=== PATIENT | male | born 1950 | race African-American/Black ===

== ENCOUNTER 2024-02-24 17:58 | Inpatient (IN) | payer MEDICAID, MEDICARE ==
[~2024-02-24] VITALS: Ht 177.8 cm; Wt 81.6 kg
[2024-02-24] MEDS ORDERED: LACO50TA2 PO (18:32)
[2024-02-24] MEDS ORDERED: ASPI81TA31 PO (18:32)
[2024-02-24] MEDS ORDERED: CRAN3875 PO (18:32)
[2024-02-24] MEDS ORDERED: APIX5TAB4 PO (18:32)
[2024-02-24] MEDS ORDERED: INSU100V39 (18:32)
[2024-02-24] MEDS ORDERED: SPIR25TA6 PO (18:32)
[2024-02-24] MEDS ORDERED: LACT1CAP61 PO (18:32)
[2024-02-24] MEDS ORDERED: BUME1TAB8 PO (18:32)
[2024-02-24] MEDS ORDERED: METO25TA6 PO (18:32)
[2024-02-24] MEDS ORDERED: ISOS30TA9 PO (18:32)
[2024-02-24] MEDS ORDERED: SACU1TAB PO (18:32)
[2024-02-24] MEDS ORDERED: METF-440 PO (18:32)
[2024-02-24] MEDS ORDERED: MAGN400O6 PO (18:32)
[2024-02-24] MEDS ORDERED: ATOR40TA PO (18:32)
[2024-02-24] MEDS ORDERED: INSULIN GLARGINE SQ (18:32)
[2024-02-24] MEDS ORDERED: EMPA10TA PO (18:32)
[2024-02-24] MEDS ORDERED: CRAN425C6 PO (18:32)
[2024-02-24] MEDS ORDERED: AMIO200T5 PO (18:32)
[2024-02-24] MEDS ORDERED: LEVE500T20 PO (18:32)
[2024-02-24 18:38] LABS: BASOPHILS % (AUTO) 0.1 % (0.0-2.0); EOSINOPHILS # (AUTO) 0.1 K/uL (0.0-0.7); EOSINOPHILS % (AUTO) 1.1 % (0.0-7.0); HEMATOCRIT 32.5 % (36.7-47.1); HEMOGLOBIN 10.8 g/dL (12.5-16.3); LYMPHOCYTES % (AUTO) 26.9 % (20.5-51.5); MEAN CORPUSCULAR HEMOGLOBIN 32.2 uug (23.8-33.4); MEAN CORPUSCULAR HGB CONC 33 g/dL (32.5-36.3); MEAN CORPUSCULAR VOLUME 97.2 fL (73.0-96.2); MONOCYTES # (AUTO) 1.5 K/uL (0.1-1.30); NEUTROPHILS # (AUTO) 6.7 K/uL (1.8-8.9); NEUTROPHILS % (AUTO) 58.9 % (38.5-71.5); PLATELET COUNT (AUTO) 267 K/uL (152-348); RED BLOOD CELL COUNT(AUTO) 3.34 MIL/uL (4.06-5.63); RED CELL DISTRIBUTION WIDTH 13.1 % (12.1-16.2); WHITE BLOOD COUNT (AUTO) 11.3 K/uL (3.6-10.2)
[2024-02-24 18:44] LABS: DIFFERENTIAL COMMENT 1
[2024-02-24 18:46] LABS: CALCIUM 9.1 mg/dL (8.5-10.1); CARBON DIOXIDE 24 mmol/L (21-32); CHLORIDE 99 mmol/L (98-107); CREATININE 3.8 mg/dL (0.6-1.3); GLUCOSE 136 mg/dL (74-106); POTASSIUM 4.3 mmol/L (3.5-5.1); SODIUM SERUM 136 mmol/L (136-145); UREA NITROGEN, BLOOD 64 mg/dL (7-18)
[2024-02-24] MEDS: IV NORMAL SALINE 1000 ML BAG IV ONE ×2 (18:46→20:00)
[2024-02-24 18:49] LABS: AMMONIA < 10 umol/L (11-32)
[2024-02-24 18:55] LABS: ALANINE AMINOTRANSFERASE 21 U/L (16-63); ALBUMIN 3.1 g/dL (3.4-5.0); ALKALINE PHOSPHATASE 81 U/L (50-136); ASPARTATE AMINOTRANSFERASE 8 U/L (15-37); BILIRUBIN,DIRECT 0.2 mg/dL (0.0-0.2); BILIRUBIN,TOTAL 0.5 mg/dL (0.2-1.0); ETHANOL < 3 MG/DL (0-10); TOTAL PROTEIN, SERUM 7.3 g/dL (6.4-8.2)
[2024-02-24 18:56] LABS: ACETAMINOPHEN < 2.0 ug/mL (10-30)
[2024-02-24] MEDS ORDERED: ONDANSETRON 4 MG/2 ML VIAL IV PRN (21:15)
[2024-02-24] MEDS ORDERED: ACETAMINOPHEN 325 MG TABLET PO PRN (21:15)
[2024-02-24] MEDS ORDERED: LIDOCAINE 2%-EPI 1:100,000 20 ML VIAL ONE (22:10)
[2024-02-24] MEDS: LIDOCAINE 2%-EPI 1:100,000 20 ML VIAL IJ ONE (22:15)
[2024-02-24 23:40] LABS: *BILIRUBIN,URIN NEGATIVE (NEGATIVE); *BLOOD, URINE 2+ (NEGATIVE); *CLARITY,URINE SLIGHTLY CLOUDY (CLEAR); *COLOR,URINE YELLOW (YELLOW); *KETONES,URINE NEGATIVE (NEGATIVE); *PROTEIN,URINE 1+ (NEGATIVE); *UROBILINOGEN,URINE 0.2 E.U./dl (NORMAL); LEUKOCYTE ESTERASE ,URINE 3+ (NEGATIVE); NITRITE, URINE POSITIVE (NEGATIVE); PH,URINE 5.5 (5.0-8.0); UGLUCOSE 2+ (NEGATIVE)
[2024-02-24 23:52] LABS: BACTERIA,URINE MODERATE /HPF (NONE SEEN); SQUAMOUS EPITHELIAL CELL,UR FEW /HPF (NONE SEEN); WBC,URINE TNTC /HPF (0-3)
[2024-02-24 23:53] LABS: *AMPHETAMINE, URINE NEGATIVE (NEGATIVE); *BARBITURATE, URINE NEGATIVE (NEGATIVE); *BENZODIAZEPINE, URINE NEGATIVE (NEGATIVE); *CANNABINOID, URINE NEGATIVE (NEGATIVE); *COCCAINE, URINE NEGATIVE (NEGATIVE); *OPIATE, URINE NEGATIVE (NEGATIVE); *PHENCYCLIDINE SCREEN,URINE NEGATIVE (NEGATIVE)
[2024-02-24 23:54] LABS: FENTANYL, URINE NEGATIVE (NEGATIVE)
[2024-02-24] MEDS: CEFTRIAXONE 1 G in IV DEXTROSE 5% 50 ML IV ONE (23:59)
[2024-02-24] MEDS ORDERED: CEFTRIAXONE /D5W 50ML IVPB **ER PYXIS IV ONE (23:59)
[2024-02-25] VITALS (62 sets, daily range): BP systolic 73–175; BP diastolic 49–164; TEMP 98–99; O2SAT 87–100
[2024-02-25] MEDS ORDERED: NOREPINEPHRINE BITARTRATE 4 MG/4 ML VIAL IV ONE
[2024-02-25] MEDS ORDERED: levETIRAcetam 500 MG/5 ML VIAL IV ONE (03:30)
[2024-02-25] MEDS: levETIRAcetam IV 500 MG in IV DEXTROSE 5% 100 ML IV ONE (03:35)
[2024-02-25] MEDS: OLANZAPINE 10 MG VIAL IM ONE (04:04)
[2024-02-25] MEDS: NOREPINEPHRINE BITARTRATE 32 MG in IV NORMAL SALINE 218 ML IV ONE (04:20)
[2024-02-25] MEDS: IV NS 1000 ML 1,000 ML IV PRN (05:05)
[2024-02-25 05:37] LABS: BASOPHILS # (AUTO) 0.1 K/UL (0.0-0.2); BASOPHILS % (AUTO) 0.9 % (0.0-2.0); EOSINOPHILS % (AUTO) 0.2 % (0.0-7.0); HEMATOCRIT 34.3 % (36.7-47.1); HEMOGLOBIN 11.2 g/dL (12.5-16.3); LYMPHOCYTES # (AUTO) 3.8 K/uL (0.8-4.8); LYMPHOCYTES % (AUTO) 29.1 % (20.5-51.5); MEAN CORPUSCULAR HEMOGLOBIN 31.6 uug (23.8-33.4); MEAN CORPUSCULAR HGB CONC 33 g/dL (32.5-36.3); MEAN CORPUSCULAR VOLUME 97.1 fL (73.0-96.2); MONOCYTES # (AUTO) 1.3 K/uL (0.1-1.30); MONOCYTES % (AUTO) 9.8 % (0.0-11.0); NEUTROPHILS # (AUTO) 7.9 K/uL (1.8-8.9); PLATELET COUNT (AUTO) 297 K/uL (152-348); RED BLOOD CELL COUNT(AUTO) 3.53 MIL/uL (4.06-5.63); RED CELL DISTRIBUTION WIDTH 13.7 % (12.1-16.2); WHITE BLOOD COUNT (AUTO) 13.1 K/uL (3.6-10.2)
[2024-02-25 05:50] LABS: DIFFERENTIAL COMMENT 1
[2024-02-25 06:12] LABS: IRON, SERUM 66 ug/dL (50-175)
[2024-02-25 06:18] LABS: ALANINE AMINOTRANSFERASE 29 U/L (16-63); ALBUMIN 3.2 g/dL (3.4-5.0); ALKALINE PHOSPHATASE 78 U/L (50-136); ASPARTATE AMINOTRANSFERASE 13 U/L (15-37); BILIRUBIN,TOTAL 0.4 mg/dL (0.2-1.0); CALCIUM 9.2 mg/dL (8.5-10.1); CARBON DIOXIDE 24 mmol/L (21-32); CHLORIDE 100 mmol/L (98-107); CHOLESTEROL 125 mg/dL (<200); CREATININE 2.8 mg/dL (0.6-1.3); GLUCOSE 163 mg/dL (74-106); HDL CHOLESTEROL 70 mg/dL (40-60); MAGNESIUM 1.9 mg/dL (1.8-2.4); PHOSPHOROUS 3.9 mg/dL (2.5-4.9); POTASSIUM 4.6 mmol/L (3.5-5.1); SODIUM SERUM 135 mmol/L (136-145); TOTAL PROTEIN, SERUM 7.5 g/dL (6.4-8.2); TRIGLYCERIDES 89 MG/DL (30-150); UREA NITROGEN, BLOOD 56 mg/dL (7-18)
[2024-02-25] MEDS: PANTOPRAZOLE SODIUM 40 MG TABLET.DR PO SCH (07:00)
[2024-02-25 07:05] LABS: THYROID STIMULATING HORMONE 0.829 mIU/mL (0.358-3.740)
[2024-02-25] MEDS: ASPIRIN 81 MG TAB.CHEW PO SCH (09:00)
[2024-02-25] MEDS: AMIODARONE HCL 200 MG TABLET PO SCH (09:00)
[2024-02-25] MEDS: ISOSORBIDE DINITRATE 10 MG TABLET PO SCH (09:00)
[2024-02-25] MEDS: APIXABAN 2.5 MG TABLET PO SCH (09:35)
[2024-02-25] MEDS: OLANZAPINE 10 MG VIAL IM PRN (10:16)
[2024-02-25] MEDS: NOREPINEPHRINE BITARTRATE 32 MG in IV NORMAL SALINE 218 ML IV PRN (13:51)
[2024-02-25] MEDS ORDERED: levETIRAcetam 500 MG/5 ML LIQUID UDC NG SCH (15:30)
[2024-02-25] MEDS ORDERED: levETIRAcetam 500 MG/5 ML VIAL IV SCH (15:49)
[2024-02-25] MEDS: levETIRAcetam IV 500 MG in IV DEXTROSE 5% 100 ML IV SCH (16:22)
[2024-02-25] MEDS: LACOSAMIDE 50 MG TABLET PO SCH (16:23)
[2024-02-25] MEDS ORDERED: LACOSAMIDE 50 MG TABLET PO SCH (17:00)
[2024-02-25] MEDS ORDERED: DEXTROSE 50% 50 ML DISP.SYRIN IV PRN (18:15)
[2024-02-25] MEDS: CEFTRIAXONE 1 G in IV DEXTROSE 5% 50 ML IV SCH (18:42)
[2024-02-25] MEDS: ATORVASTATIN 40 MG TABLET PO SCH (21:04)
[2024-02-25] MEDS: BLOOD SUGAR DIAGNOSTIC 1 EACH STRIP VI SCH (21:23)
[2024-02-25] MEDS: INSULIN REGULAR, HUMAN 300 UNIT/3 ML VIAL SQ PRN (21:55)
[2024-02-25] MEDS: TEMAZEPAM 15 MG CAPSULE PO PRN (21:58)
[2024-02-26] VITALS (24 sets, daily range): BP systolic 98–148; BP diastolic 61–86; TEMP 98.4–99.1; O2SAT 95–100
[2024-02-26] MEDS: PANTOPRAZOLE SODIUM 40 MG VIAL IV SCH (09:00)
[2024-02-26] MEDS: levETIRAcetam IV 500 MG in IV DEXTROSE 5% 100 ML IV SCH (09:00)
[2024-02-26 10:08] LABS: BASOPHILS % (AUTO) 0.2 % (0.0-2.0); EOSINOPHILS % (AUTO) 0.3 % (0.0-7.0); HEMATOCRIT 32.2 % (36.7-47.1); HEMOGLOBIN 10.9 g/dL (12.5-16.3); LYMPHOCYTES # (AUTO) 1.5 K/uL (0.8-4.8); LYMPHOCYTES % (AUTO) 14.7 % (20.5-51.5); MEAN CORPUSCULAR HEMOGLOBIN 33.1 uug (23.8-33.4); MEAN CORPUSCULAR HGB CONC 34 g/dL (32.5-36.3); MEAN CORPUSCULAR VOLUME 97.4 fL (73.0-96.2); MONOCYTES # (AUTO) 1.1 K/uL (0.1-1.30); MONOCYTES % (AUTO) 10.7 % (0.0-11.0); NEUTROPHILS # (AUTO) 7.3 K/uL (1.8-8.9); NEUTROPHILS % (AUTO) 74.1 % (38.5-71.5); PLATELET COUNT (AUTO) 236 K/uL (152-348); RED BLOOD CELL COUNT(AUTO) 3.31 MIL/uL (4.06-5.63); RED CELL DISTRIBUTION WIDTH 13.5 % (12.1-16.2); WHITE BLOOD COUNT (AUTO) 9.9 K/uL (3.6-10.2)
[2024-02-26 11:32] LABS: ALANINE AMINOTRANSFERASE 21 U/L (16-63); ALBUMIN 3.1 g/dL (3.4-5.0); ALKALINE PHOSPHATASE 75 U/L (50-136); ASPARTATE AMINOTRANSFERASE 19 U/L (15-37); BILIRUBIN,TOTAL 0.4 mg/dL (0.2-1.0); CARBON DIOXIDE 23 mmol/L (21-32); CHLORIDE 107 mmol/L (98-107); CREATININE 1.4 mg/dL (0.6-1.3); GLUCOSE 125 mg/dL (74-106); MAGNESIUM 1.8 mg/dL (1.8-2.4); PHOSPHOROUS 3.2 mg/dL (2.5-4.9); POTASSIUM 4.5 mmol/L (3.5-5.1); SODIUM SERUM 141 mmol/L (136-145); TOTAL PROTEIN, SERUM 7.4 g/dL (6.4-8.2); UREA NITROGEN, BLOOD 33 mg/dL (7-18)
[2024-02-27] VITALS (23 sets, daily range): BP systolic 91–139; BP diastolic 50–94; TEMP 98.4–99.4; O2SAT 96–100
[2024-02-28 00:48] VITALS: BP 130/80; TEMP 98.4; O2SAT 98
[2024-02-28 11:59] VITALS: BP 140/87; TEMP 98.4; O2SAT 97
[2024-02-28 15:17] VITALS: BP 120/76; TEMP 98.4; O2SAT 97
[2024-02-28] MEDS: levETIRAcetam IV 500 MG in IV DEXTROSE 5% 100 ML IV ONE (19:11)
[2024-02-28 20:00] VITALS: BP 120/75; TEMP 98.5; O2SAT 100
[2024-02-28] MEDS: levETIRAcetam 500 MG TABLET PO SCH (21:26)
[2024-02-29 00:14] VITALS: BP 126/72; TEMP 97.9; O2SAT 93
[2024-02-29 06:00] VITALS: BP 148/81; TEMP 98; O2SAT 97
[2024-02-29 06:42] LABS: BASOPHILS # (AUTO) 0.1 K/UL (0.0-0.2); BASOPHILS % (AUTO) 0.7 % (0.0-2.0); EOSINOPHILS # (AUTO) 0.3 K/uL (0.0-0.7); EOSINOPHILS % (AUTO) 2.8 % (0.0-7.0); HEMATOCRIT 29.3 % (36.7-47.1); LYMPHOCYTES # (AUTO) 2.2 K/uL (0.8-4.8); LYMPHOCYTES % (AUTO) 21.8 % (20.5-51.5); MEAN CORPUSCULAR HEMOGLOBIN 33.2 uug (23.8-33.4); MEAN CORPUSCULAR HGB CONC 34 g/dL (32.5-36.3); MEAN CORPUSCULAR VOLUME 97.6 fL (73.0-96.2); MONOCYTES # (AUTO) 1.6 K/uL (0.1-1.30); MONOCYTES % (AUTO) 15.7 % (0.0-11.0); NEUTROPHILS # (AUTO) 5.8 K/uL (1.8-8.9); PLATELET COUNT (AUTO) 243 K/uL (152-348); RED CELL DISTRIBUTION WIDTH 13.4 % (12.1-16.2); WHITE BLOOD COUNT (AUTO) 9.9 K/uL (3.6-10.2)
[2024-02-29 06:53] LABS: DIFFERENTIAL COMMENT 1
[2024-02-29 06:56] LABS: CREATININE 0.9 mg/dL (0.6-1.3); MAGNESIUM 1.6 mg/dL (1.8-2.4); PHOSPHOROUS 3.2 mg/dL (2.5-4.9)
[2024-02-29] MEDS: PANTOPRAZOLE SODIUM 40 MG TABLET.DR PO SCH (07:00)
[2024-02-29 07:31] VITALS: BP 134/73; TEMP 97.9; O2SAT 95
[2024-02-29] MEDS ORDERED: CEFT1FRO2 IV (10:43)
[2024-02-29] MEDS ORDERED: LACO50TA2 PO (10:43)
[2024-02-29] MEDS ORDERED: APIX2.5T PO (10:43)
[2024-02-29] MEDS: MAGNESIUM OXIDE 400 MG TABLET PO ONE (11:26)
[2024-02-29 13:20] VITALS: BP 98/58; TEMP 97.4; O2SAT 98
[2024-02-29 15:30] LABS: EOSINOPHILS % (MANUAL) 1 % (0-8); LYMPHOCYTES % (MANUAL) 24 % (20-40); MONOCYTES % (MANUAL) 14 % (2-10); NEUTROPHILS % (MANUAL) 61 % (42-75)
[2024-02-29 15:31] LABS: ANISOCYTOSIS 1+; PLATELET ESTIMATE ADEQUATE
[2024-02-29 15:51] VITALS: BP 105/71; TEMP 98.6; O2SAT 97
== END 2024-02-29 15:45 | DRG 720 ==
LOC: ER 17:58 → CCU 21:38 → TELE3 02-27 18:54
PROVIDERS: ADMIT Internal Medicine; ATTEND Internal Medicine
PROC: B548ZZA Ultrasonography of Superior Vena Cava, Guidance (ICD-10-PCS; principal; 2024-02-24)
PROC: 02HV33Z Insertion of Infusion Device into Superior Vena Cava, Percutaneous Approach (ICD-10-PCS; principal; 2024-02-24)
DX: A41.9 Sepsis, unspecified organism (principal); N17.0 Acute kidney failure with tubular necrosis; G92.8 Other toxic encephalopathy; I21.A1 Myocardial infarction type 2; D68.59 Other primary thrombophilia; I13.0 Hypertensive heart and chronic kidney disease with heart failure and stage 1 through stage 4 chronic kidney disease, or unspecified chronic kidney disease; I95.9 Hypotension, unspecified; N39.0 Urinary tract infection, site not specified; I50.22 Chronic systolic (congestive) heart failure; E11.22 Type 2 diabetes mellitus with diabetic chronic kidney disease; B96.20 Unspecified Escherichia coli [E. coli] as the cause of diseases classified elsewhere; I69.351 Hemiplegia and hemiparesis following cerebral infarction affecting right dominant side; F01.50 Vascular dementia, unspecified severity, without behavioral disturbance, psychotic disturbance, mood disturbance, and anxiety; D64.9 Anemia, unspecified; E11.65 Type 2 diabetes mellitus with hyperglycemia; G40.909 Epilepsy, unspecified, not intractable, without status epilepticus; I48.0 Paroxysmal atrial fibrillation; Z88.0 Allergy status to penicillin; I25.10 Atherosclerotic heart disease of native coronary artery without angina pectoris; Z74.09 Other reduced mobility; Z87.891 Personal history of nicotine dependence; N18.9 Chronic kidney disease, unspecified; E66.9 Obesity, unspecified; Z68.25 Body mass index [BMI] 25.0-25.9, adult; L90.5 Scar conditions and fibrosis of skin; E78.5 Hyperlipidemia, unspecified; M50.30 Other cervical disc degeneration, unspecified cervical region; M48.02 Spinal stenosis, cervical region
CPT/HCPCS: 36415; 70030-TC; 70450; 71045; 72125; 76775; 80299; 83550; 83605; 83735; 84100; 84443; 84484; 85025; 85730; 87040; 93005; A4606; A4663; G0378; G0480; J0696; J1815; J1953; J2358; J2470; J3490; J7040

== ENCOUNTER 2024-03-06 11:45 | Emergency (ER) | payer MEDICARE, OTHER ==
[~2024-03-06] VITALS: Ht 177.8 cm; Wt 81.6 kg
[~2024-03-06 11:45] MED LIST: AMIO200T5 PO; APIX2.5T PO; ASPI81TA31 PO; ATOR40TA PO; BUME1TAB8 PO; CEFT1FRO2 IV; CRAN3875 PO; CRAN425C6 PO; EMPA10TA PO; INSU100V39; INSULIN GLARGINE SQ; ISOS30TA9 PO; LACO50TA2 PO; LACT1CAP61 PO; LEVE500T20 PO; MAGN400O6 PO; METF-440 PO; METO25TA6 PO; SACU1TAB PO; SPIR25TA6 PO
[2024-03-06 14:10] VITALS: BP 122/84; TEMP 97; O2SAT 99
== END 2024-03-06 14:11 | disposition home or self-care (01) ==
LOC: ER 11:45
DX: Z45.2 Encounter for adjustment and management of vascular access device (principal); I48.91 Unspecified atrial fibrillation; E11.9 Type 2 diabetes mellitus without complications; Z79.4 Long term (current) use of insulin; Z79.899 Other long term (current) drug therapy; Z79.84 Long term (current) use of oral hypoglycemic drugs; Z79.82 Long term (current) use of aspirin; Z60.2 Problems related to living alone; Z88.0 Allergy status to penicillin
CPT/HCPCS: A4606; A4663